=== PATIENT | male | born 1940 | race Caucasian/White ===

== ENCOUNTER → 2016-03-18 | Outpatient (CLI) | payer OTHER ==
--- NOTE | 2016-03-18 17:12 | US ---
Bilateral Duplex Carotid Sonography Clinical Indications: Left-sided carotid bruit. History of coronary artery disease. Chronic tobacco u se. Technique: The cervical portions of the carotid and vertebral arteries were imaged and interrogated by color and pulsed Doppler. Spectral analysis was performed. Findings: Right Carotid: The common carotid artery, bifurcation, and origin of the internal and external carot id artery are well imaged. No significant plaque is identified. Doppler velocity estimates and color Doppler spectra are normal. Peak ICA systolic velocity = 63 cm/sec and diastolic velocity = 23 cm/ sec. No evidence of flow-limiting stenosis. Mild to moderate calcified plaque is present at the carot id bulb and proximal ICA without significant encroachment upon the lumen. There is transient reversal of flow at the end of systole suggestive of aortic valvular regurgitation. Left Carotid: The common carotid artery, bifurcation, and origin of the internal and external caroti d artery are well imaged. No significant plaque is identified in the CCA. Doppler velocity estimate s and color Doppler spectra are normal. Peak ICA systolic velocity = 74 cm/sec and peak diastolic cathi ocity = 22 cm/sec. No evidence of flow-limiting stenosis. There is mild to moderate circumferential c alcified plaque at the left carotid bulb the proximal ICA with only mild encroachment upon the lumen. There is relatively hypoechoic component to the central aspect of this plaque. Vertebral Arteries: Antegrade flow is shown by pulsed Doppler of each vertebral artery. Impression: 1. No evidence of flow-limiting carotid stenosis. 2. Mild predominantly calcified plaque at the right carotid bulb the proximal ICA. 3. Mild to moderate plaque at the left carotid bulb and proximal ICA with calcification along the inn er wall and relatively hypoechoic component centrally within the plaque. This could represent an at r isk plaque. If indicated, consider correlation with CT angiogram of the neck. Measurement of carotid stenosis is based on velocity parameters that correlate the residual internal carotid diameter with [place] Symptomatic Carotid Endarterectomy Trial (NASCET) based stenosis levels.
== END ==
LOC: FIMAGING 11:44
PROVIDERS: ATTEND Internal Medicine Cardiovascular Disease
DX: R09.89 Other specified symptoms and signs involving the circulatory and respiratory systems (principal); I70.8 Atherosclerosis of other arteries; Z95.1 Presence of aortocoronary bypass graft; I25.10 Atherosclerotic heart disease of native coronary artery without angina pectoris; F17.200 Nicotine dependence, unspecified, uncomplicated

== ENCOUNTER 2016-04-06 09:30 | Observation (INO) | payer OTHER ==
[2016-04-06] MEDS ORDERED: diphenhydrAMINE 25 MG CAP PO ONE ×2 (09:34→10:05)
[2016-04-06] MEDS ORDERED: NS 1,000 ML IV ONE (09:34)
[2016-04-06] MEDS ORDERED: FAMOTIDINE 20 MG TAB PO ONE (09:34)
[2016-04-06] MEDS ORDERED: DIAZEPAM 5 MG TAB PO ONE (09:34)
[2016-04-06] MEDS ORDERED: ASPIRIN EC 325 MG TAB PO ONE ×2 (09:34→10:05)
--- NOTE | 2016-04-06 09:57 | CPEKG ---
Heart Rate: 74 RR Interval: 811 P-R Interval: 192 QRSD Interval: 110 QT Interval: 404 QTC Interval: 449 P [place]: 76 QRS [place]: -63 T Wave [place]: 60 EKG Severity - ABNORMAL ECG - EKG Impression: SINUS RHYTHM EKG Impression: INCOMPLETE LEFT BUNDLE BRANCH BLOCK Electronically Signed By: Tomas French 06-Apr-2016 12:16:38
[2016-04-06] MEDS ORDERED: FAMOTIDINE 20 MG TAB ONE (10:05)
[2016-04-06] MEDS ORDERED: DIAZEPAM 5 MG TAB ONE (10:06)
[2016-04-06 10:19] LABS: % IMMATURE GRANULYOCYTES 0.3 % (0.0-1.1); ABSOLUTE IMMATURE GRANULOCYTES 0.02 10^3/uL (0.00-0.10); ADD DIFF? NO; ADD MORPH? NO; ADD SCAN? NO; ATYPICAL LYMPHOCYTE FLAG 10 (0-99); FRAGMENT RBC FLAG 0 (0-99); HEMATOCRIT 41.2 % (40.0-51.0); HEMOGLOBIN 14.8 g/dL (13.7-17.5); LEFT SHIFT FLG 0 (0-99); LIPEMIA HEMOLYSIS FLAG 90 (0-99); MEAN CELL HEMOGLOBIN 36.2 pg (27.9-34.1); MEAN CELL HEMOGLOBIN CONCENTR. 35.9 g/dL (32.4-36.7); MEAN CELL VOLUME 100.7 fL (81.5-99.8); MEAN PLATELET VOLUME 9.1 fL (8.7-11.7); PLATELET CLUMPS FLAG 0 (0-99); PLATELET COUNT 208 10^3/uL (150-400); RED BLOOD CELL COUNT 4.09 10^6/uL (4.40-6.38); RED CELL DISTRIBUTION WIDTH 12.8 % (11.5-15.2)
[2016-04-06 10:26] LABS: INR 1.03 (0.83-1.16); PROTIME(PATIENT) 13.4 SEC (12.0-15.0)
[2016-04-06 10:30] LABS: ANION GAP 8 mEq/L (8-16); CARBON DIOXIDE 26 mEq/l (22-31); CHLORIDE 100 mEq/L (97-110); CHOLESTEROL 128 mg/dL (140-220); GLOMERULAR FILTRATION RATE > 60; GLUCOSE 90 mg/dL (70-100); HIGH DENSITY LIPOPROTEIN 64 mg/dL (40-65); LDL/HDL RATIO 0.81 RATIO (1.00-3.64); LOW DENSITY LIPOPROTEIN 52 mg/dL (80-100); MAGNESIUM 1.9 mg/dL (1.6-2.3); NON-HIGH DENSITY LIPOPROTEIN 64 mg/dL (90-129); POTASSIUM 4.6 mEq/L (3.5-5.2); SODIUM 134 mEq/L (134-144); TRIGLYCERIDE 64 mg/dL (40-150); VERY LOW DENSITY LIPOPROTEINS 12 mg/dL (8-25)
[2016-04-06] MEDS ORDERED: LIDOCAINE 1% 30 ML SDV ONE (11:05)
[2016-04-06] MEDS ORDERED: fentaNYL 100 MCG/2 ML INJ ONE ×2 (11:05→12:45)
[2016-04-06] MEDS ORDERED: IOPAMIDOL (ISOVUE 370) 100 ML BTL IV ONE ×6 (11:06→14:05)
[2016-04-06] MEDS ORDERED: MIDAZOLAM 2 MG/2 ML VIAL ONE ×4 (11:06→13:52)
--- NOTE | 2016-04-06 11:58 | SUROPNOTE ---
[facility] Operative Report - Surgery Date of Procedure: 04/06/16 Indication: This patient is a 75 year old man, with known coronary artery disease s/p anterior STEMI 12/20/2008 initially treated with thrombolytics with subsequent 6-vessel CABG 12/23/2008, presenting with new onset exertional intolerance and fatigue, which represents [place] [facility] class III anginal equivalent. The patient has had minimal risk stratification since 2008. Nuclear stress test was abnormal demonstrating a moderate size, mild intensity reversible defect involving the full extent of the inferior wall. Echocardiogram was also abnormal demonstrating severe apical hypokinesis and mild anterior septal hypokinesis, with LVEF of 55%. Left heart catheterization indicated secondary to class III anginal equivalent and high risk non-invasive testing. Bypass graft angiography will be performed. The patient has a GARCIA graft to the second diagonal branch in sequence to the LAD, SVG to first diagonal branch, SVG to the proximal OM sequenced to the distal OM, and a SVG to the posterolateral branch of the right coronary artery. Procedures performed: 1. Selective coronary and bypass graft angiography. 2. Balloon angioplasty, intravascular ultrasound imaging, and intracoronary stent placement x1 in the right posterior descending artery. 3. Balloon angioplasty, intravascular ultrasound imaging, and intracoronary stent placement x1 in the [place] right coronary artery. Description of procedure: Description, risks, benefits and alternatives were discussed in detail. Informed consent was obtained. The patient was brought to the catheterization laboratory where a timeout was performed. Femoral access will be utilized secondary to bypass graft angiography. The right groin was sterilely prepped and draped. 2% lidocaine utilized for local anesthetic. A 6-Stateless hemostatic sheath placed right femoral artery utilizing modified Seldinger technique. The 6 -Stateless sheath was exchanged for a long 24cm 6-Stateless Flexi-sheath secondary to the tortuosity of the artery. Diagnostic coronary and bypass graft angiography performed with 6-Stateless, Jolie left-4.5, Jolie right-4, AL1, RCB, LCB, and GARCIA catheter. All catheters were passed over a 0.035 guidewire. The obvious culprit lesion was a 95-99% stenosis in the [place] mid right posterior descending artery with TIMI2 flow. Plans were made for percutaneous intervention. Angiomax was administered. A 6-Stateless AL1 short tip was utilized as guide catheter, however could not be torqued properly due to abdominal aortic disease and Ward's crook takeoff. Instead, the 6-Stateless Flexi-sheath was exchanged for a long 45cm 8-Stateless Flexi-sheath and a 7-Stateless AL1 short tip guide catheter was utilized. A long 300cm Senior Scrum Master 50 wire was placed in the PDA with a 1.5mm x 8mm Emerge [id number] balloon. Ultimately, it was difficulty to place a wire in the distal vessel due to the tortuosity and the distal nature of the disease. The Senior Scrum Master 50 was removed, while the balloon was kept in place, and exchanged for a long Prowater J wire. The Emerge over the wire balloon was advanced further and the Prowater J was removed. A long Fielder XT wire was placed and navigated into a branch of the PDA, however the Emerge balloon was not able to advance into the branch. The Fielder XT was removed and exchanged for a long Mailman wire, which was placed in the PDA. The Emerge balloon was inflated in the mid PDA to 14 atmospheres. This restored TIMI3 flow. The balloon was pulled back into the guide catheter while the wire was kept in place. Intracoronary nitroglycerin and verapamil was administered. Balloon was removed. Ultrasound catheter was placed and intravascular ultrasound imaging was performed in the PDA and the [place] right coronary in order to assess lesion length and reference vessel diameter. Due to technical difficulties, the first IVUS run was incomplete and a second IVUS run was completed. A 2.25mm x 32mm Synergy drug-eluding stent was chosen and placed, however as the stent was being positioned, the guide catheter shifted and the wire was pulled back. The Mailman wire was unable to be pre-introduced into the PDA. Mailman wire and stent was removed. A short Samurai wire was placed but had difficulty advancing into the PDA. A 6-Stateless Guideliner was placed with a 2.25mm x 12mm Emerge balloon for more distal support. This allowed the Samurai wire and the 2.25mm Emerge balloon to be placed in the PDA. The Emerge balloon was utilized for a total of 3 inflations to a maximum of 14 atmospheres for pre- dilation. The Emerge balloon was also utilized for pre-dilation in the mid right coronary, for a total of 2 inflations to a maximum of 14 atmospheres. The balloon was removed. The 2.25mm x 32mm Synergy drug-eluding stent was re- introduced and was carefully positioned in the [place] PDA, without extending into the bifurcation This was deployed to 11 atmospheres. The stent balloon was utilized for three post-dilation inflations to 11, 14, and 16 atmospheres. The Guideliner was pulled back. Next, a 4.0mm x 38mm Synergy drug-eluding stent was chosen and was carefully positioned in the proximal-mid right coronary artery. This was deployed to 18 atmospheres. Ultrasound catheter was re-introduced and repeat intravascular ultrasound imaging was performed, which demonstrates satisfactory result with no residual areas of severe stenosis. A 2.75mm x 12mm NC Emerge balloon was chosen for high-pressure post-dilation, however was not able to advance due to the tortuosity of the proximal stent. The balloon and wire were removed. As the balloon and wire were removed, there was slow flow in the vessel and the patient became bradycardic. This may have represented some air being pulled back in the guide catheter, however this responded well to high-flow oxygen and intracoronary nitroglycerin and verapamil. Flow improved in the vessel. Final angiography demonstrated satisfactory result. Guide catheter was removed. The long 8-Stateless Flexi-sheath was exchanged for an 8-Stateless Rives sheath. 8- Stateless Angio Seal arteriotomy repair was then performed, but was unsuccessful. The sheath was removed under prolonged manual pressure. Fem-Stop was placed. Findings: 1. Hemodynamics: Aortic pressure 127/73, mean of 97. 2. Coronary angiography: Left main: The left main is a short moderate diameter bifurcating vessel with plaquing but no significant stenosis 3. Left anterior descending: The LAD gives rise to a diagonal branch which is [id number], then it totally occluded. 4. Circumflex: The circumflex has a small high-lateral that appears to be subtotally occluded. There is a 90% proximal circumflex stenosis. Then a large bifurcating obtuse marginal branch. Small posterolateral branch. The OM has 50% proximal disease. 5. Right coronary: This vessel has a Ward's crook takeoff with a proximal- mid 80% stenosis with significant calcium. The distal vessel prior to the crux has an ulcerated 85% stenosis. The right coronary gives rise to a posterior descending and posterolateral. The PDA has a proximal and mid 95-99% stenosis and a diffusely disease distal bifurcating vessel. The distal right posterolateral is subtotally occluded and fills via patent vein graft. 6. Bypass graft angiography: The mid graft is a saphenous vein graft to the diagonal and is widely patent with minor luminal irregularities. The most inferior graft is a vein graft to the right posterolateral and has irregularities but is widely patent. There is a widely patent GARCIA graft to the second diagonal branch in sequence to the LAD, the far LAD has diffuse 80% disease. The final graft is from the superior graft marker and is a sequential graft to both branches of the principle obtuse marginal branch. 7. Percutaneous intervention: Guided by intravascular ultrasound and angiography, the mid PDA and proximal-mid RCA lesions were treated with balloon angioplasty and placement of a total of two drug-eluding stents, with satisfactory result by intravascular ultrasound. There was an attempt made for post-dilation with NC Emerge balloon, however this could not cross due to tortuosity of the proximal right coronary stent. There was felt to be satisfactory result by angiography with minimal residual stenosis. Overall Impression: 1. Severe disease in the proximal-mid right coronary artery and the mid posterior descending artery, treated with balloon angioplasty and placement of a total of two drug-eluding stents, with satisfactory result by intravascular ultrasound and angiography. 2. Widely patent saphenous vein grafts and GARCIA graft, see above bypass graft angiography findings for details. Plan: 1. Dual antiplatelet therapy. 2. Aggressive risk modification and high dose statin therapy. 3. Abdominal aortic aneurysm screening. 4. Close clinical follow up. Portions of this report were documented by a medical records auditor. I have reviewed this report and agree with the documentation. Report scribed for Dr. Sean Coronado. Report scribed by Cindy Lynn.
[2016-04-06] MEDS ORDERED: BIVALIRUDIN 250 MG/5 ML VIAL IV ONE ×2 (12:05→13:16)
[2016-04-06] MEDS ORDERED: NITROGLYCERIN 1,500 MCG/15 ML VIAL MISC ONE (12:30)
[2016-04-06] MEDS ORDERED: VERAPAMIL 5 MG/2 ML VIAL ONE (12:30)
[2016-04-06] MEDS ORDERED: PRASUGREL HCL 10 MG TAB ONE (14:13)
[2016-04-06] MEDS ORDERED: NITROGLYCERIN/D5W/250 ML BOTTLE IV ONE (15:03)
[2016-04-06] MEDS ORDERED: PRASUGREL HCL 10 MG TAB PO ONE (15:26)
[2016-04-06] MEDS ORDERED: ATROPINE SULFATE 1 MG/10 ML SYR IVP PRN (15:26)
[2016-04-06] MEDS ORDERED: OXYCODONE/APAP 5/325 TAB PO PRN (15:26)
[2016-04-06] MEDS ORDERED: LORazepam 2 MG/ML INJ IVP PRN (15:26)
[2016-04-06] MEDS ORDERED: TEMAZEPAM 15 MG CAP PO PRN (15:26)
[2016-04-06] MEDS ORDERED: HYDROCODONE/APAP 5/325 TAB PO PRN (15:26)
[2016-04-06] MEDS ORDERED: NITROGLYCERIN 0.4 MG BTL SL PRN (15:26)
[2016-04-06] MEDS ORDERED: ONDANSETRON 4 MG/2 ML VIAL IVP PRN (15:26)
[2016-04-06] MEDS ORDERED: OXYCODONE/APAP 5/325 TAB ONE (15:58)
[2016-04-06] MEDS: D5W 1/2 NS 1,000 ML IV SCH (17:29)
[2016-04-07] MEDS: D5W 1/2 NS 1,000 ML IV SCH (01:33)
[2016-04-07 04:54] LABS: % IMMATURE GRANULYOCYTES 0.3 % (0.0-1.1); ABSOLUTE IMMATURE GRANULOCYTES 0.03 10^3/uL (0.00-0.10); ADD DIFF? NO; ADD MORPH? NO; ADD SCAN? NO; ATYPICAL LYMPHOCYTE FLAG 0 (0-99); FRAGMENT RBC FLAG 0 (0-99); HEMATOCRIT 33.9 % (40.0-51.0); LEFT SHIFT FLG 0 (0-99); LIPEMIA HEMOLYSIS FLAG 90 (0-99); MEAN CELL HEMOGLOBIN CONCENTR. 35.4 g/dL (32.4-36.7); MEAN CELL VOLUME 101.8 fL (81.5-99.8); MEAN PLATELET VOLUME 9.5 fL (8.7-11.7); PLATELET CLUMPS FLAG 0 (0-99); PLATELET COUNT 176 10^3/uL (150-400); RED BLOOD CELL COUNT 3.33 10^6/uL (4.40-6.38); RED CELL DISTRIBUTION WIDTH 12.9 % (11.5-15.2)
[2016-04-07 05:14] LABS: ALBUMIN 3.3 g/dL (3.5-5.0); ANION GAP 4 mEq/L (8-16); ASPARTATE AMINOTRANSFERASE 23 IU/L (17-59); BILIRUBIN,TOTAL 1.7 mg/dL (0.1-1.4); CALCIUM 9.3 mg/dL (8.5-10.4); CARBON DIOXIDE 26 mEq/l (22-31); CHLORIDE 102 mEq/L (97-110); CREATININE 0.9 mg/dL (0.7-1.3); GLOMERULAR FILTRATION RATE > 60; GLUCOSE 88 mg/dL (70-100); LACTATE DEHYDROGENASE 432 IU/L (313-618); POTASSIUM 4.7 mEq/L (3.5-5.2); SODIUM 132 mEq/L (134-144)
--- NOTE | 2016-04-07 08:47 | CPEKG ---
Heart Rate: 66 RR Interval: 909 P-R Interval: 184 QRSD Interval: 112 QT Interval: 400 QTC Interval: 420 P [place]: 74 QRS [place]: -62 T Wave [place]: 65 EKG Severity - ABNORMAL ECG - EKG Impression: SINUS RHYTHM EKG Impression: INCOMPLETE LEFT BUNDLE BRANCH BLOCK Electronically Signed By: Tomas French 07-Apr-2016 08:59:13
[2016-04-07] MEDS ORDERED: PRASUGREL HCL 10 MG TAB PO SCH (09:00)
[2016-04-07] MEDS ORDERED: ASPIRIN EC 325 MG TAB PO SCH (09:00)
--- NOTE | 2016-04-07 10:08 | SOAPPROG ---
[facility] Progress Note Assessment/Plan: Assessment: 1. Status post DESx1 prox-mid three affiliated RCA, DESx1 three affiliated right PDA. On DAPT with aspirin and Effient. Plavix genetic testing is pending. 2. CAD s/p CABGx6 in 2008. GARCIA and SVGs all appear patent. The three affiliated LAD is totally occluded. The three affiliated Cx is subtotalled. 3. Hyperlipidemia, well-controlled on atorvastatin 40 mg/d. 4. History of left subclavian artery stent. 5. Tobacco use/ pipe smoking. 6. Hypothyroidism. 7. Gout. 8. Mild-moderate carotid artery disease. Plan: 1. Plavix genetic testing. 2. Continue aspirin 325 mg once daily and Effient 10 mg/d. 3. Continue all other home medications as dosed. 4. Discharge to home today. Patient will consider cardiac rehab near his home in [place] vs. [facility]. 5. Office follow up scheduled for 04/13/16 at 330 pm. AAA screen to be ordered at that time. 04/07/16 10:13 Subjective: The patient is feeling well today but did not tolerate yesterday's sedation well. His right groin puncture site is uncomplicated, non-tender, no bruit on ausculatation. He has no other cardiovascular complaints today. Objective: Vital Signs Temp Pulse Resp BP Pulse Ox 36.6 C 80 13 101/56 L 95 04/07/16 07:23 04/07/16 07:23 04/07/16 07:23 04/07/16 07:23 04/07/16 07:23 Laboratory Results 04/07/16 03:48 04/07/16 03:48 04/06/16 04/07/16 04/08/16 05:59 05:59 05:59 Intake Total 2985 Output Total 1200 Balance 1785 PT 13.4 SEC (12.0-15.0) 04/06/16 10:00 INR 1.03 (0.83-1.16) 04/06/16 10:00 Physical Exam - Physical Exam General Appearance: WD/WN, alert, no apparent distress Respiratory: chest non-tender, lungs clear, normal breath sounds, wheezing Cardiac/Chest: normal peripheral pulses, regular rate, rhythm, other (right groin puncture site with mild ecchymosis) Peripheral Pulses: 2+: dorsalis-pedis (R), dorsalis-pedis (L) Extremities: No swelling Neuro/Psych: no motor/sensory deficits, alert, normal mood/affect, oriented x 3 ICD10 Worksheet Patient Problems: Problems Problem Status Onset Hyperlipidemia Acute Coronary artery disease Acute
[2016-04-07 11:01] VITALS: BP 112/76; PULSE 72; RESP 16; TEMP 97.8; O2SAT 94
--- NOTE | 2016-04-07 15:27 | GDS ---
[f rep st] DISCHARGE SUMMARY DISCHARGE DIAGNOSES: 1. Status post coronary stenting of proximal to mid right coronary artery and saxman right posterio r descending arteries. 2. Coronary artery disease status post 6 vessel coronary artery bypass graft in 2008. 3. Hyperlipidemia. 4. History of left subclavian artery stent. 5. Tobacco use. 6. Hypothyroidism. 7. Gout. 8. Mild to moderate carotid artery disease. HOSPITAL PROCEDURES: 1. Selective coronary and bypass graft angiography. 2. Balloon angioplasty, IVUS and stent implantation x1 in right posterior descending artery. 3. Balloon angioplasty, IVUS and implantation of drug-eluting stent x1 in saxman right coronary art leta. HOSPITAL COURSE: The patient is a pleasant 75-year-old male, who recently established with our prac alex with a remote history of 6 vessel coronary artery bypass grafting, known peripheral disease and multiple cardiovascular risk factors, who has been complaining of increased dyspnea on exertion rec ently. He underwent nuclear stress testing in our office that showed a moderate inferior wall rever sible perfusion defect. He was taken to the quality control lab tech electively by Dr. Coronado yesterday, and under went angiography via right femoral approach. Angiography showed patency of left internal mammary an d the saphenous vein grafts with progression of saxman vessel disease in the proximal saxman right c oronary artery and saxman posterior descending artery. The patient received a 2.25 mm x 32 mm Syner gy drug-eluting stent in the posterior descending and an additional 4.0 mm x 38 mm Synergy drug-elut ing stent in the right coronary artery. There were no complications associated with the procedure, and the patient has done well overnight. Mr. Clemons has no significant complaints this morning. His right groin puncture site is nontender, and he has no numbness or tingling in his right leg. There is mild ecchymosis surrounding the punc ture site. LABORATORY STUDIES: Show a slight drop in hemoglobin and hematocrit, likely due to hemodilution wit h values of 12.0 and 33.9, respectively this morning. Chemistry panel is remarkable for mild hypona tremia of 132, which I would also attribute to hemodilution as well. Lipid panel performed yesterda y shows well controlled values with an LDL of 52 and HDL cholesterol 64 mg/dL. His vital signs have been stable overnight. He will be discharged today in good condition. DISCHARGE MEDICATIONS: Aspirin 325 mg p.o. once daily, Effient 10 mg p.o. once daily, atorvastatin 40 mg p.o. once daily, levothyroxine 125 mcg p.o. once daily, allopurinol 300 mg p.o. once daily. Mr. Clemons has a followup visit in our office scheduled for next Monday, April 13 at 3:30 p .m. Plavix genetic testing has been ordered and is pending, and the results will likely be availabl e by that time next week. Assuming he metabolizes his clopidogrel normally, he will be switched ove r to clopidogrel 75 mg once daily from his current Effient dose. Due to his continued tobacco use, we will also perform ultrasound screening for abdominal aortic aneurysm. He has been given standard groin puncture site precautions, and we will discuss any further issues in cardiac rehab at followu p visit next week. /[id number]/MODL
== END 2016-04-07 11:33 | disposition home or self-care (01) ==
LOC: FCATH 09:30 → F2W 13:11
PROVIDERS: ADMIT Internal Medicine Interventional Cardiology; ATTEND Internal Medicine Interventional Cardiology
PROC: 027135Z Dilation of Coronary Artery, Two Arteries with Two Drug-eluting Intraluminal Devices, Percutaneous Approach (ICD-10-PCS; principal; 2016-04-06)
PROC: B2131ZZ Fluoroscopy of Multiple Coronary Artery Bypass Grafts using Low Osmolar Contrast (ICD-10-PCS; 2016-04-06)
PROC: B244ZZ3 Ultrasonography of Right Heart, Intravascular (ICD-10-PCS; 2016-04-06)
DX: I25.10 Atherosclerotic heart disease of native coronary artery without angina pectoris (principal); R53.83 Other fatigue; R94.39 Abnormal result of other cardiovascular function study; R09.89 Other specified symptoms and signs involving the circulatory and respiratory systems; Z95.1 Presence of aortocoronary bypass graft; E78.5 Hyperlipidemia, unspecified; F17.200 Nicotine dependence, unspecified, uncomplicated; E03.9 Hypothyroidism, unspecified; M10.9 Gout, unspecified; I77.9 Disorder of arteries and arterioles, unspecified; I73.9 Peripheral vascular disease, unspecified
CPT/HCPCS: 92978; 93005; 93455; C1725; C1753; C1760; C1769; C1874; C1887; C9600; G0378; J0583; J1644; J2250; J3010; Q9967; 81225-90

== ENCOUNTER → 2016-04-27 | Outpatient (CLI) | payer OTHER | LOC: BMCIMAGING 11:22 | PROVIDERS: ATTEND Internal Medicine Interventional Cardiology | DX: Z13.6 Encounter for screening for cardiovascular disorders (principal); I25.10 Atherosclerotic heart disease of native coronary artery without angina pectoris; Z87.891 Personal history of nicotine dependence ==

== ENCOUNTER → 2016-10-27 | Outpatient (CLI) | payer OTHER | LOC: BMCIMAGING 09:47 | PROVIDERS: ATTEND Internal Medicine | DX: K59.00 Constipation, unspecified (principal) ==